=== PATIENT | male | born 1990 | race Caucasian/White ===

== ENCOUNTER 2017-02-19 20:51 | Emergency (ER) | payer OTHER ==
--- NOTE | 2017-02-19 21:42 | ED ---
General Adult HPI - General Chief complaint: GI Bleed Stated complaint: Male Time Seen by Provider: 02/19/17 21:00 Source: patient, RN notes reviewed Mode of arrival: ambulatory Limitations: no limitations - History of Present Illness Initial comments: This is a 26-year-old male who presents emergency Department complaining of rectal bleeding. Patient states she's had hemorrhage in the past of a bleeding but this was a little more blood than he has had the past with sciatica min per patient states the bleeding started about 3 days ago. Patient states he has a little bit of discomfort in the rectal area but he states that his been ongoing for 5 days. Patient denies any fever chills or cough per patient denies any lightheadedness dizziness or syncopal episode. Patient denies any shortness of breath or chest pain. Patient denies any anal sex. Patient states when he was younger he believes he also had a fissure. - Related Data Home Medications Medication Instructions Recorded Confirmed Cholecalciferol [Vitamin D3] 2,000 unit PO DAILY 02/19/17 02/19/17 Previous Rx's Medication Instructions Recorded Hydrocortisone [Anusol-Hc] 1 applic RECTAL BID 10 Days 02/19/17 Allergies Allergy/AdvReac Type Severity Reaction Status Date / Time No Known Allergies Allergy Verified 02/19/17 21:04 Review of Systems ROS Statement: Those systems with pertinent positive or pertinent negative responses have been documented in the HPI. ROS Other: All systems not noted in ROS Statement are negative. Past Medical History Past Medical History: Cancer Additional Past Medical History / Comment(s): hemmorhoids, kidney cancer History of Any Multi-Drug Resistant Organisms: None Reported Additional Past Surgical History / Comment(s): eye surgery Past Psychological History: No Psychological Hx Reported Smoking Status: Former smoker Past Alcohol Use History: Occasional Past Drug Use History: None Reported General Exam - General Exam Comments Initial Comments: GENERAL Patient is well-developed and well-nourished. Patient is in mild distress. EYES Patient's pupils are equal and round. Extraocular motion is intact SKIN Unremarkable NEURO The patient is alert and oriented 3 PYSCH Patient has normal interpersonal interactions. Rectal On rectal exam he has an obvious external hemorrhoid which is bleeding. Limitations: no limitations Course Vital Signs 02/19/17 20:53 Temperature 98.3 F Pulse Rate 94 Respiratory 20 Rate Blood Pressure 153/79 O2 Sat by Pulse 98 Oximetry Disposition Clinical Impression: Bleeding hemorrhoid Disposition: HOME SELF-CARE Condition: Good Instructions: Hemorrhoids (ED) Additional Instructions: Patient should use sitz baths 3 he should also take MiraLAX daily to soften his stools and increase his water intake. Patient should use Anusol as prescribed Prescriptions: Hydrocortisone [Anusol-Hc] 1 applic RECTAL BID 10 Days Time of Disposition: 21:38
[2017-02-19 21:49] VITALS: BP 133/69; PULSE 87; RESP 18; TEMP 97
== END 2017-02-19 21:48 | disposition home or self-care (01) ==
LOC: EC 20:51
DX: K64.4 Residual hemorrhoidal skin tags (principal); Z85.528 Personal history of other malignant neoplasm of kidney; Z87.891 Personal history of nicotine dependence; Z79.899 Other long term (current) drug therapy
CPT/HCPCS: 99284